=== PATIENT | female | born 1960 | race Caucasian/White ===

== ENCOUNTER 2019-04-03 10:53 | Emergency (ER) | payer MEDICARE, MEDICAID ==
[2019-04-03] MEDS ORDERED: ACETAMINOPHEN 325 MG TABLET PO ONE (11:06)
--- NOTE | 2019-04-03 11:06 | ER Document Report ---
HPI - HPI Time Seen by Provider: 04/03/19 11:04 Notes: Patient is a 58-year-old female with a history of hypertension, anxiety, MS, hyperlipidemia who presents complaining of left elbow swelling and pain status post fall Thursday night. Patient states that she tripped and landed on her elbow on the pavement. Patient states that she scraped her left knee, but did not injure any other part of her body. She did not hit her head. Patient states that her knee feels fine otherwise and has been ambulating without any difficulty. Denies drug allergies. She is on aspirin but no other blood thinner. Denies any headache, fever, head injury, neck pain, changes in vision/speech/mentation/hearing, URI, sore throat, chest pain, palpitations, syncope, cough, shortness of breath, wheeze, dyspnea, abdominal pain, nausea/vomiting/diarrhea, urinary retention, dysuria, hematuria, loss of control of bowel or bladder, numbness/tingling, saddle anesthesia, muscle paralysis, or rash. - ROS Systems Reviewed and Negative: Yes All other systems reviewed and negative Past Medical History - Social History Smoking Status: Current Every Day Smoker Family History: Reviewed & Not Pertinent Vertical Provider Document - CONSTITUTIONAL Agree With Documented VS: Yes Notes: PHYSICAL EXAMINATION: GENERAL: Well-appearing, well-nourished and in no acute distress. HEAD: Atraumatic, normocephalic. NECK: Normal range of motion, supple without lymphadenopathy. No midline tenderness. LUNGS: Breath sounds clear to auscultation bilaterally and equal. No wheezes rales or rhonchi. HEART: Regular rate and rhythm without murmurs, rubs, gallops. Musculoskeletal: Left elbow: + swelling and tenderness to the elbow area and proximal forearm. LROM to passive/active. Strength 4+/5 due to pain. N/V intact distal. FROM at the shoulder/wrist/fingers. No other bony tenderness apprecia julianna. Lt knee: small abrasion. No deformity, tenderness, swelling, erythema, warmth, or ecchymosis. N/V intact distal. Extremities: No cyanosis, clubbing, or edema b/l. Peripheral pulses 2+. Cap illary refill less than 3 seconds. NEUROLOGICAL: Normal speech, normal gait. Normal sensory, motor exams otherwise PSYCH: somewhat anxious SKIN: Warm, Dry, normal turgor, no rashes or lesions noted. Course - Vital Signs Vital signs: Temp Pulse Resp BP Pulse Ox 98.3 F 100 18 144/96 H 98 04/03/19 10:58 04/03/19 10:58 04/03/19 10:58 04/03/19 10:58 04/03/19 10:58
[2019-04-03] MEDS ORDERED: NORMAL SALINE 1000 ML 1,000 ML IV ONE (11:15)
[2019-04-03] MEDS ORDERED: MORPHINE SULFATE 10 MG/ML INJ IV ONE (11:15)
--- NOTE | 2019-04-03 11:15 | ER Document Report ---
ED Medical Screen (RME) - General Chief Complaint: Arm Injury Stated Complaint: ARM INJURY Time Seen by Provider: 04/03/19 11:04 - HPI Notes: 04/03/19 11:14 Patient is a 58-year-old female with a history of hypertension, anxiety, MS, hyperlipidemia who presents complaining of left elbow swelling and pain status post fall Dwain night. Patient states that she tripped and landed on her elbow on the pavement. Patient states that she scraped her left knee, but did not injure any other part of her body. She did not hit her head. Patient states that her knee feels fine otherwise and has been ambulating without any difficulty. Denies drug allergies. She is on aspirin but no other blood thinner. Denies any headache, fever, head injury, neck pain, changes in vision/speech/mentation/hearing, URI, sore throat, chest pain, palpitations, syncope, cough, shortness of breath, wheeze, dyspnea, abdominal pain, nausea/vomiting/diarrhea, urinary retention, dysuria, hematuria, loss of control of bowel or bladder, numbness/tingling, saddle anesthesia, muscle paralysis, or rash. I have treated and performed a rapid initial assessment of this patient. A comprehensive ED assessment and evaluation of the patient, analysis of test results and completion of medical decision making process will be conducted by additional ED providers. PHYSICAL EXAMINATION: Musculoskeletal: Left elbow: + significant swelling/deformity noted and tenderness to the elbow area and proximal forearm. LROM to passive/active. FROM at the shoulder/wrist/fingers. No other bony tenderness appreciated. Lt knee: small abrasion. No deformity, tenderness, swelling, erythema, warmth, or ecchymosis. N/V intact distal. PSYCH: somewhat anxious Physical Exam - Vital signs Vitals: Temp Pulse Resp BP Pulse Ox 98.3 F 100 18 144/96 H 98 04/03/19 10:58 04/03/19 10:58 04/03/19 10:58 04/03/19 10:58 04/03/19 10:58 Course - Vital Signs Vital signs: Temp Pulse Resp BP Pulse Ox 98.3 F 100 18 144/96 H 98 04/03/19 10:58 04/03/19 10:58 04/03/19 10:58 04/03/19 10:58 04/03/19 10:58
[2019-04-03 11:34] LABS: ABSOLUTE BASOPHILS # (AUTO) 0.1 10^3/uL (0.0-0.2); ABSOLUTE EOSINOPHILS # (AUTO) 0.1 10^3/uL (0.0-0.6); ABSOLUTE LYMPHOCYTES (AUTO) 2.6 10^3/uL (0.5-4.7); ABSOLUTE MONOCYTES (AUTO) 1.1 10^3/uL (0.1-1.4); ABSOLUTE NEUT (AUTO) 5.4 10^3/uL (1.7-8.2); BASOPHILS % (AUTO) 1.2 % (0-2); EOSINOPHILS % (AUTO) 0.8 % (0-6); HEMATOCRIT 41.8 % (36.0-47.0); HEMOGLOBIN 14.5 g/dL (12.0-15.5); LYMPHOCYTES % (AUTO) 28.1 % (13-45); MEAN CORPUSCULAR HEMOGLOBIN 32.5 pg (27.0-33.4); MEAN CORPUSCULAR HGB CONC 34.6 g/dL (32.0-36.0); MEAN CORPUSCULAR VOLUME 94 fl (80-97); MONOCYTES % (AUTO) 12.1 % (3-13); PLATELET COUNT 327 10^3/uL (150-450); RED BLOOD COUNT 4.45 10^6/uL (3.72-5.28); SEGMENTED NEUTROPHILS % (AUTO) 57.8 % (42-78); TOTAL CELLS COUNTED % (AUTO) 100 %; WHITE BLOOD COUNT 9.3 10^3/uL (4.0-10.5)
[2019-04-03 11:36] LABS: INTERNATIONAL RATION (INR) 0.96; PROTHROMBIN TIME 12.8 SEC (11.4-15.4)
[2019-04-03 11:37] LABS: PARTIAL THROMBOPLASTIN TIME 28.6 SEC (23.5-35.8)
[2019-04-03 11:51] LABS: ALBUMIN 4.4 g/dL (3.5-5.0); ALKALINE PHOSPHATASE 101 U/L (38-126); ANION GAP 13 (5-19); ASPARTATE AMINO TRANSFERASE 30 U/L (14-36); BILIRUBIN,DIRECT 0.1 mg/dL (0.0-0.4); BILIRUBIN,TOTAL 0.9 mg/dL (0.2-1.3); BLOOD UREA NITROGEN 9 mg/dL (7-20); CALCIUM 10.1 mg/dL (8.4-10.2); CARBON DIOXIDE 20 mmol/L (22-30); CHLORIDE 103 mmol/L (98-107); GLUCOSE 138 mg/dL (75-110); POTASSIUM 4.4 mmol/L (3.6-5.0); TOTAL PROTEIN 7.8 g/dL (6.3-8.2)
--- NOTE | 2019-04-03 11:52 | RADIOLOGY REPORT (SQ) ---
EXAM DESCRIPTION: ELBOW LEFT OVER 2 VIEWS COMPLETED DATE/TIME: 04/03/2019 11:24 am REASON FOR STUDY: elbow pain COMPARISON: None. NUMBER OF VIEWS: Two views. TECHNIQUE: AP and lateral radiographic images acquired of the left elbow. LIMITATIONS: None. FINDINGS: Lateral dislocation of the elbow. Subcentimeter bone fragments overlying the posterior tracy int capsule. IMPRESSION: Lateral dislocation. TECHNICAL DOCUMENTATION: JOB ID: [id number] [employer]- All Rights Reserved Reading location - IP/workstation name: [email or web address]
[2019-04-03] MEDS ORDERED: PROPOFOL INJ 200 MG/20 ML VIAL IV ONE ×3 (12:08→13:50)
[2019-04-03] MEDS ORDERED: FENTANYL CITRATE INJ/PF 100 MCG/2 ML AMPUL IV ONE (12:09)
[2019-04-03] MEDS ORDERED: NORMAL SALINE 500 ML IV ONE (13:17)
--- NOTE | 2019-04-03 14:53 | RADIOLOGY REPORT (SQ) ---
EXAM DESCRIPTION: ELBOW LEFT AP/LATERAL COMPLETED DATE/TIME: 04/03/2019 2:34 pm REASON FOR STUDY: Reduction COMPARISON: Earlier the same day. NUMBER OF VIEWS: Two views. TECHNIQUE: AP and lateral radiographic images acquired of the left elbow. LIMITATIONS: External cast. FINDINGS: Reduction of previously described elbow dislocation. IMPRESSION: Successful closed reduction. TECHNICAL DOCUMENTATION: JOB ID: [id number] [employer]- All Rights Reserved Reading location - IP/workstation name: [email or web address]
--- NOTE | 2019-04-03 15:12 | ER Document Report ---
ED General - General Chief Complaint: Arm Injury Stated Complaint: ARM INJURY Time Seen by Provider: 04/03/19 11:04 Primary Care Provider: JD MCGOVERN PA-C [Primary Care Provider] - Follow up as needed ISABELLE HANNA JR, DO [ACTIVE PROVISIONAL STAFF] - Follow up tomorrow Mode of Arrival: Ambulatory Information source: Patient, Relative Notes: Patient is a 58-year-old female with a history of hypertension, anxiety, MS, hyperlipidemia who presents complaining of left elbow swelling and pain status post fall Thursday night. Patient states that she tripped and landed on her elbow on the pavement. Patient states that she scraped her left knee, but did not in jure any other part of her body. She did not hit her head. Patient states that her knee feels fine otherwise and has been ambulating without any difficulty. Denies drug allergies. She is on aspirin but no other blood thinner. Denies any headache, fever, head injury, neck pain, changes in vision /speech/mentation/hearing, URI, sore throat, chest pain, palpitations, syncope, cough, shortness of breath, wheeze, dyspnea, abdominal pain, nausea/vomiting/diarrhea, urinary retention, dysuria, hematuria, loss of control of bowel or bladder, numbness/tingling, saddle anesthesia, muscle paralysis, or rash. TRAVEL OUTSIDE OF THE [place] IN LAST 30 DAYS: No - HPI Onset: Other Onset/Duration: Gradual, Persistent Quality of pain: Achy, Throbbing Severity: Moderate Pain Level: 3 Associated symptoms: denies: Chest pain, Diarrhea, Fever, Leg swelling, Nausea, Vomiting, Shortness of breath, Sweating, Weakness Exacerbated by: Movement Relieved by: Remaining still Similar symptoms previously: No Recently seen / treated by doctor: No - Related Data Allergies/Adverse Reactions: No Known Allergies Allergy (Verified 04/03/19 11:16) Past Medical History - General Information source: Patient, Relative, Emergency Med Personnel - Social History Smoking Status: Current Every Day Smoker Cigarette use (# per day): Yes - 10 Chew tobacco use (# tins/day): No Smoking Education Provided: Yes - Smoking cessation counseling was provided for 4 minutes at the bedside Frequency of alcohol use: Social Drug Abuse: None Lives with: Family Family History: Reviewed & Not Pertinent Patient has suicidal ideation: No Patient has homicidal ideation: No - Past Medical History Cardiac Medical History: Reports: Hx Hypercholesterolemia, Hx Hypertension Review of Systems - Review of Systems Notes: REVIEW OF SYSTEMS: CONSTITUTIONAL : Denies fever, chills, or sweats. Denies recent illness. Denies weight loss, recent hospitalizations. EENT: Denies visual changes, eye pain. Denies sore throat, oral lesions, difficulty swallowing. CARDIOVASCULAR: Denies chest pain. Denies palpitations. Denies lower extremity edema. RESPIRATORY: Denies cough. Denies shortness of breath, wheezing. GASTROINTESTINAL: Denies abdominal pain or distention. Denies nausea, vomiting, or diarrhea. Denies blood in vomitus, stools, or per rectum. Denies black, tarry stools. Denies constipation. GENITOURINARY: Denies difficulty urinating, painful urination, frequency, blood in urine, or vaginal discharge. MUSCULOSKELETAL: Denies back or neck pain or stiffness. + joint pain or swelling. SKIN: Denies rash, lesions or sores. HEMATOLOGIC : Denies easy bruising or bleeding. LYMPHATIC: Denies swollen glands. NEUROLOGICAL: Denies confusion or altered mental status. Denies loss of consciousness. Denies dizziness or lightheadedness. Denies headache. Denies weakness or paralysis. Denies problems difficulty with ambulation, slurred speech. Denies sensory loss, numbness, or tingling. Denies seizures. PSYCHIATRIC: Denies anxiety or stress. Denies depression, suicidal ideation, or homicidal ideation. Denies visual or auditory hallucinations. Physical Exam - Vital signs Vitals: Temp Pulse Resp BP Pulse Ox 98.3 F 100 18 144/96 H 98 04/03/19 10:58 04/03/19 10:58 04/03/19 10:58 04/03/19 10:58 04/03/19 10:58 - Notes Notes: PHYSICAL EXAMINATION: GENERAL: Well-appearing, well-nourished and in no acute distress. HEAD: Atraumatic, normocephalic. EYES: Pupils equal round and reactive to light, extraocular movements intact, conjunctiva are normal. ENT: Nares patent, oropharynx clear without exudates. Moist mucous membranes. NECK: Normal range of motion, supple without lymphadenopathy LUNGS: Breath sounds clear to auscultation bilaterally and equal. No wheezes rales or rhonchi. HEART: Regular rate and rhythm without murmurs ABDOMEN: Soft, nontender, nondistended abdomen. No guarding, no rebound. No masses appreciated. Female : deferred Musculoskeletal: Normal range of motion of bilateral lower extremity, right upper extremity, no pitting or edema. No cyanosis. Left elbow with obvious deformity, ecchymosis, swelling. Limited range of motion. Radial pulse intact. Cap refill less than 3 seconds. sensation intact. NEUROLOGICAL: Cranial nerves grossly intact. Normal speech, normal gait. Normal sensory, motor exams PSYCH: Normal mood, normal affect. SKIN: Warm, Dry, normal turgor, no rashes or lesions noted. Course - Re-evaluation Re-evalutation: 04/03/19 18:25 Laboratory 04/03/19 04/03/19 04/03/19 11:20 11:20 11:20 WBC 9.3 RBC 4.45 Hgb 14.5 Hct 41.8 MCV 94 MCH 32.5 MCHC 34.6 RDW 14.0 Plt Count 327 Lymph % (Auto) 28.1 Forest % (Auto) 12.1 Eos % (Auto) 0.8 Baso % (Auto) 1.2 Absolute Neuts (auto) 5.4 Absolute Lymphs (auto) 2.6 Absolute Monos (auto) 1.1 Absolute Eos (auto) 0.1 Absolute Basos (auto) 0.1 Seg Neutrophils % 57.8 PT 12.8 INR 0.96 APTT 28.6 Sodium 136.0 L Potassium 4.4 Chloride 103 Carbon Dioxide 20 L Anion Gap 13 BUN 9 Creatinine 0.85 Est GFR ( Amer) > 60 Est GFR (MDRD) Non-Af > 60 Glucose 138 H Calcium 10.1 Total Bilirubin 0.9 Direct Bilirubin 0.1 Neonat Total Bilirubin Not Reportable Neonat Direct Bilirubin Not Reportable Neonat Indirect Bili Not Reportable AST 30 ALT 16 Alkaline Phosphatase 101 Total Protein 7.8 Albumin 4.4 Elbow X-Ray 04/03/19 13:39 IMPRESSION: Successful closed reduction. Upper Extremity CT 04/03/19 15:06 IMPRESSION: Fractures of the lateral humeral condyle and radial head. Temp Pulse Resp BP Pulse Ox 99.0 F 81 20 158/76 H 97 04/03/19 15:01 04/03/19 13:02 04/03/19 15:31 04/03/19 15:31 04/03/19 15:31 58-year-old female presents after a trip and fall that occurred 3 days ago with complaint of left elbow pain. Patient denies any preceding chest pain, dizziness contributing to her fall. Patient has been icing and taking anti- inflammatory medications without relief. X-ray of the elbow was obtained and showed a lateral dislocation with radial head fracture. Patient was successfully reduced in the emergency department using fentanyl and propofol. Postreduction neuro and vascular exam within normal limits. Patient was placed in a long-arm posterior splint and repeat films show successful close reduction. I did speak to Dr. Hanna orthopedic surgeon on-call who is requesting a CT of the upper extremity. He has agreed to see the patient in the office tomorrow. Patient is agreeable with this plan. Patient was evaluated and treated as appropriate for the patient's presenting symptoms and complaint, with consideration of any critical or life threatening conditions that may be associated with their obtained history and exam as noted above. All results were discussed with patient and... Patient provided the opportunity to ask questions, and express concerns. Patient was educated on treatments based on their presumed diagnosis as noted above. At this time we will discharge the patient with return precautions and follow-up recommendations. Verbal discharge instructions given a the bedside. Medication warnings reviewed. Patient is in agreement with this plan and has verbalized understanding of return precautions. After careful consideration I feel that that patient can be safely discharged from the emergency department, they were advised to followup with a primary car e physician in 2-3 days. Dictation on this chart was performed using voice recognition software and may result in unintended grammatical, spelling, syntax or errors. - Vital Signs Vital signs: Temp Pulse Resp BP Pulse Ox 99.0 F 81 20 158/76 H 97 04/03/19 15:01 04/03/19 13:02 04/03/19 15:31 04/03/19 15:31 04/03/19 15:31 - Laboratory Result Diagrams: 04/03/19 11:20 04/03/19 11:20 Laboratory results interpreted by me: 04/03/19 11:20 Sodium 136.0 L Carbon Dioxide 20 L Glucose 138 H - Diagnostic Test Radiology reviewed: Image reviewed, Reports reviewed Procedures - Conscious Sedation Conscious sedation Time started: 13:00 Time completed: 13:35 Consent obtained: Yes Indication: Left elbow dislocation Last meal: 4 hours prior to arrival Prior complications: Procedural sedation Pt with a mild systemic disease.: P2. - ASA Classification. Airway Evaluation: Normal anatomy Mallampati Classification: Class 2 Used during procedure: Suction available, IV access obtained, Pulse ox on pt., monitor worker on pt. Medications administered: Fentanyl, Diprivan Reversal agents: None I personally performed/intraservice time: Sedation, Procedure, 31-45 min Complications: No - Joint Reduction/Fracture Care Left Elbow Time completed: 13:00 Consent obtained: Yes Conscious sedation: Yes Pre-procedure NV exam: Yes Fracture: Closed Post-procedure NV exam: Yes Post-reduction x-ray: Joint reduced Reduction attempts: 2 Complications: No Discharge - Discharge Clinical Impression: Elbow dislocation Qualifiers: Encounter type: initial encounter Laterality: left Qualified Code(s): S53.105A - Unspecified dislocation of left ulnohumeral joint, initial encounter Radial head fracture, closed Qualifiers: Encounter type: initial encounter Fracture alignment: displaced Laterality: left Qualified Code(s): S52.122A - Displaced fracture of head of left radius, initial encounter for closed fracture Fall Qualifiers: Encounter type: initial encounter Qualified Code(s): W19.XXXA - Unspecified fall, initial encounter Condition: Good Disposition: HOME, SELF-CARE Instructions: Dislocation ([facility]), Radial Head Fracture ([facility]) Additional Instructions: If you experience increasing pain you may loosen your splint but do not remove it completely. If loosening the splint does not help with your pain please return to the emergency department. Your x-ray showed a dislocation and fracture of your left elbow which will need to be seen by orthopedic surgery. Please call Dr. Hanna tomorrow morning Thursday, April 04, 2019 to schedule an appointment. Prescriptions: Oxycodone HCl/Acetaminophen [Percocet 5-325 mg Tablet] 1 tab PO Q6H PRN #15 tablet PRN Reason: Ondansetron [Zofran Odt 4 mg Tablet] 1 - 2 tab PO Q4H PRN #15 tab.rapdis PRN Reason: For Nausea/Vomiting Forms: Elevated Blood Pressure Referrals: JD MCGOVERN PA-C [Primary Care Provider] - Follow up as needed ISABELLE HANNA JR, DO [ACTIVE PROVISIONAL STAFF] - Follow up tomorrow
[2019-04-03 15:44] VITALS: BP 158/76
--- NOTE | 2019-04-03 16:07 | RADIOLOGY REPORT (SQ) ---
EXAM DESCRIPTION: CT LT UPPER EXTREMITY WITHOUT COMPLETED DATE/TIME: 04/03/2019 3:47 pm REASON FOR STUDY: fracture dislocation left elbow COMPARISON: None. TECHNIQUE: Axial imaging performed through the Left elbow with reformatted coronal and sagittal imaging windowed for bone and soft tissues. Images saved to PAC S. 3D IMAGING: Were 3D images as MIP, SSD, or volume rendering performed at the work station? Yes LIMITATIONS: External cast. FINDINGS: SOFT TISSUES: External cast. BONY STRUCTURES: Dislocation has been reduced. Nondisplaced fracture of the anterior margin of the r adial head. Comminuted nondisplaced fracture of the lateral humeral condyle. MINERALIZATION: Normal. OTHER: No other significant finding. IMPRESSION: Fractures of the lateral humeral condyle and radial head. Reading location - IP/workstation name: [email or web address]
== END 2019-04-03 15:44 | disposition home or self-care (01) ==
LOC: ER 10:53
DX: S42.452A Displaced fracture of lateral condyle of left humerus, initial encounter for closed fracture (principal); S52.122A Displaced fracture of head of left radius, initial encounter for closed fracture; W19.XXXA Unspecified fall, initial encounter; I10 Essential (primary) hypertension; F17.210 Nicotine dependence, cigarettes, uncomplicated; Z71.6 Tobacco abuse counseling
CPT/HCPCS: 24999; 99406; 99284; 96361; 99152; 96374; 36415; 85025; 85610; 85730; 80053; 73070; 73080; 73200; J3010; J2270; J7030; J7040; J2704

== ENCOUNTER 2019-07-20 15:52 | Emergency (ER) | payer MEDICAID, MEDICARE ==
[2019-07-20 15:57] VITALS: BP 146/75
[2019-07-20] MEDS ORDERED: OXYCODONE-ACETAMINOPHEN 5-325 MG TABLET PO ONE (16:23)
--- NOTE | 2019-07-20 16:28 | ER Document Report ---
ED Fall - General TRAVEL OUTSIDE OF THE [place] IN LAST 30 DAYS: No - HPI Occurred: Yesterday Where: Home, Indoors Context: Tripped Associated symptoms: None Location of injury/pain: Upper extremity Quality of pain: Sharp Severity: Severe Pain Level: 5 - General Chief Complaint: Fall Injury Stated Complaint: FALL/RIGHT ARM PAIN Time Seen by Provider: 07/20/19 16:22 Primary Care Provider: [facility] [Provider Group] - Follow up tomorrow JD MCGOVERN PA-C [Primary Care Provider] - Follow up as needed ROSA M ARAIZA MD [ACTIVE PROVISIONAL STAFF] - Follow up tomorrow ISABELLE ELLIOTT JR, DO [ACTIVE PROVISIONAL STAFF] - Follow up tomorrow Notes: 58-year-old female presented to ED after she fell last night. She states she was up on the ladder and leaned on the table trying to clean a light fixture when the ladder and table went out from under her and she landed on the floor. She does have a large bruise with swelling and pain to the upper right arm. She states she did fracture her left elbow last year. She is alert oriented respirations regular nonlabored. She states she has no other pain or injuries. (LILIYA DIANA) - Related data Allergies/Adverse Reactions: No Known Allergies Allergy (Verified 07/20/19 16:16) Past Medical History - General Information source: Patient - Social History Smoking Status: Current Every Day Smoker Cigarette use (# per day): Yes - Pack per day Smoking Education Provided: Yes - 4 minutes Frequency of alcohol use: Social Drug Abuse: Marijuana - Occasionally Occupation: Disabled Lives with: Alone Family History: Reviewed & Not Pertinent Patient has suicidal ideation: No Patient has homicidal ideation: No - Past Medical History Cardiac Medical History: Reports: Hx Hypercholesterolemia, Hx Hypertension Pulmonary Medical History: Reports: None EENT Medical History: Reports: None Neurological Medical History: Reports: Hx Migraine, Other - Tremors Endocrine Medical History: Reports: None Renal/ Medical History: Reports: None Malignancy Medical History: Reports: None GI Medical History: Reports: Hx Colonoscopy Musculoskeletal Medical History: Reports Hx Arthritis, Reports Hx Multiple Sclerosis, Reports Hx Musculoskeletal Deformity, Reports Hx Musculoskeletal Trauma Skin Medical History: Reports None Psychiatric Medical History: Reports: Hx Anxiety, Hx Depression Traumatic Medical History: Reports: Hx Fractures - Left elbow Infectious Medical History: Reports: None Past Surgical History: Reports: Hx Myringotomy, Hx Oral Surgery - Lower gland removed, jaw tumors removed, Hx Tubal Ligation, Other - Fifth and sixth cervical vertebrae Review of Systems - Review of Systems Constitutional: No symptoms reported EENT: No symptoms reported Cardiovascular: No symptoms reported Respiratory: No symptoms reported Gastrointestinal: No symptoms reported Genitourinary: No symptoms reported Female Genitourinary: No symptoms reported Musculoskeletal: No symptoms reported Skin: No symptoms reported Hematologic/Lymphatic: No symptoms reported Neurological/Psychological: No symptoms reported -: Yes All other systems reviewed and negative Physical Exam - Vital signs Interpretation: Normal - General General appearance: Appears well, Alert - HEENT Head: Normocephalic, Atraumatic Eyes: Normal Pupils: PERRL - Respiratory Respiratory status: No respiratory distress Chest status: Nontender Breath sounds: Normal Chest palpation: Normal - Cardiovascular Rhythm: Regular Heart sounds: Normal auscultation Murmur: No - Abdominal Inspection: Normal Distension: No distension Bowel sounds: Normal Tenderness: Nontender Organomegaly: No organomegaly - Back Back: Normal, Nontender - Extremities General upper extremity: Normal temperature General lower extremity: Normal inspection, Nontender, Normal color, Normal ROM, Normal temperature, Normal weight bearing. No: Tanisha's sign Arm: Tender, Ecchymosis, Other - Swelling - Neurological Neuro grossly intact: Yes Cognition: Normal Orientation: AAOx4 Nurys Coma Scale Eye Opening: Spontaneous [place] Coma Scale Verbal: Oriented [place] Coma Scale Motor: Obeys Commands [place] Coma Scale Total: 15 Speech: Normal Motor strength normal: LUE, RUE, LLE, RLE Sensory: Normal - Psychological Associated symptoms: Normal affect, Normal mood - Skin Skin Temperature: Warm Skin Moisture: Dry Skin Color: Normal, Ecchymosis - Right upper arm Location of irregularity: Extremities Irregularity with: Swelling, Tenderness - Right upper arm - Vital signs Vitals: Temp Pulse Resp BP Pulse Ox 98.3 F 84 16 146/75 H 98 07/20/19 15:56 07/20/19 15:56 07/20/19 15:56 07/20/19 15:56 07/20/19 15:56 Course - Diagnostic Test Radiology reviewed: Image reviewed, Reports reviewed - Re-evaluation Re-evalutation: 07/20/19 17:26 I have discussed the x-ray results with the patient and written report of the x- rays given to patient. Patient has been given instructions to follow-up with orthopedics. She has been given the number for Dr. Elliott, Dr. Araiza, and [facility] surgery. Patient verbalized she will call someone tomorrow to be followed up for her fracture to the right proximal humerus surgical neck site. 07/20/19 17:28 To Teodora was consulted and he will examined the patient for follow-up. I have given the patient Dr. Teodora Elliott and [facility] surgery for follow-up. (LILIYA DIANA) - Vital Signs Vital signs: Temp Pulse Resp BP Pulse Ox 98.3 F 84 16 146/75 H 98 07/20/19 15:56 07/20/19 15:56 07/20/19 15:56 07/20/19 15:56 07/20/19 15:56 Procedures - Immobilization Right Shoulder Time completed: 17:15 Pre-Proc Neuro Vasc Exam: Normal Immobilizer type: Sling Performed by: PCT Post-Proc Neuro Vasc Exam: Normal Alignment checked and good: Yes Discharge - Discharge Clinical Impression: Displaced fracture of proximal end of right humerus Condition: Stable Disposition: HOME, SELF-CARE Additional Instructions: Fracture Proximal Humerus There is a fracture at the upper end of the humerus, near the shoulder joint. Your physician has assessed the fracture's severity and has determined that it will heal well without surgery or "setting." The typical shoulder fracture doesn't need a cast. It's best treated by binding the arm down with a special sling. Ice packs are used to reduce pain and swelling. After early healing has occurred, [id number] exercises are prescribed for the shoulder. Complete healing may take three to six weeks, depending on the age of the patient and the severity of the fracture. Call the doctor or return at once if the arm becomes numb, or if pain or swelling become severe. Ice Packs Apply ice packs frequently against the painful area. Many different schedules are recommended, such as "20 minutes on, 20 minutes off" or "one hour ice, two hours rest." If you need to work, you may need to go longer between ice treatments. You should plan to have the area ice packed AT LEAST one fourth of the time. The ice should be applied over the wrap, tape, or splint, or over a layer of cloth -- not directly against the skin. Some ice bags have a built-in cloth and can be put directly on the skin. USE OF [id number] IBUPROFEN: Ibuprofen (Advil, Nuprin, Medipren, Motrin IB) is a medication for fever and pain control. In addition, it has anti- inflammatory effects which may be beneficial, especially in the treatment of injuries. It's best to take ibuprofen with food. Persons with ulcer disease or allergy to aspirin should notify their physician of this before taking ibuprofen. Ibuprofen can be given every four to six hours, for a total of four doses daily. Age Pain or fever dose Antiinflammatory dose 6-8 yr 200 mg (1 tab) 200 mg (1 tab) 9-11 yr 200 mg (1 tab) 200-400 mg (1-2 tab) 11-14 yr 200-400 mg (1-2 tab) 400 mg (2 tab) 15-adult 400 mg (2 tab) 600 mg (3 tab) ORAL NARCOTIC MEDICATION: You have been given a prescription for pain control. This medication is a narcotic. It's best taken with food, as nausea can result if taken on an empty stomach. Don't operate machinery or drive within six hours of taking this medication. Do not combine this medicine with alcohol, or with any medication which can cause sedation (such as cold tablets or sleeping pills) unless you get permission from the physician. Narcotics tend to cause constipation. If possible, drink plenty of fluids and eat a diet high in fiber and fruits. Please be aware that prescription narcotics also have the potential for abuse. People become addicted to these medications because of the general sense of wellbeing that they induce. This feeling along with a significant reduction in tension, anxiety, and aggression provides a stimulating seductive quality to these drugs. Once your pain is under control, we encourage you to discard your unused narcotics. FOLLOW-UP CARE: If you have been referred to a physician for follow-up care, call the physicians office for an appointment as you were instructed or within the next two days. If you experience worsening or a significant change in your symptoms, notify the physician immediately or return to the Emergency Department at any time for re-evaluation. Prescriptions: Oxycodone HCl/Acetaminophen [Percocet 5-325 mg Tablet] 1 tab PO Q6HP PRN #15 tablet PRN Reason: Oxycodone HCl/Acetaminophen [Percocet 5-325 mg Tablet] 1 tab PO Q6H PRN #15 tablet PRN Reason: Forms: Elevated Blood Pressure, Smoking Cessation Education Referrals: JD MCGOVERN PA-C [Primary Care Provider] - Follow up as needed [facility] [Provider Group] - Follow up tomorrow ISABELLE ELLIOTT JR, DO [ACTIVE PROVISIONAL STAFF] - Follow up tomorrow ROSA M ARAIZA MD [ACTIVE PROVISIONAL STAFF] - Follow up tomorrow
--- NOTE | 2019-07-20 16:51 | RADIOLOGY REPORT (SQ) ---
EXAM DESCRIPTION: HUMERUS RIGHT COMPLETED DATE/TIME: 07/20/2019 4:40 pm REASON FOR STUDY: pain swelling and bruizing COMPARISON: None. NUMBER OF VIEWS: Two views. TECHNIQUE: Two radiographic images were acquired of the right humerus to include elbow and shoulder in at least one projection. LIMITATIONS: None. FINDINGS: MINERALIZATION: Decreased. BONES: Minimally displaced right proximal humerus surgical neck fracture. No significant angulation. SOFT TISSUES: No obvious swelling or foreign body. OTHER: No other significant finding. IMPRESSION: Minimally displaced right proximal humerus surgical neck fracture. No significant angul ation. TECHNICAL DOCUMENTATION: JOB ID: [id number] [employer] All Rights Reserved Reading location - IP/workstation name: [email or web address]
== END 2019-07-20 17:29 | disposition home or self-care (01) ==
LOC: ER 15:52
DX: S42.211A Unspecified displaced fracture of surgical neck of right humerus, initial encounter for closed fracture (principal); S40.021A Contusion of right upper arm, initial encounter; M79.601 Pain in right arm; M79.89 Other specified soft tissue disorders; W11.XXXA Fall on and from ladder, initial encounter; F17.210 Nicotine dependence, cigarettes, uncomplicated; I10 Essential (primary) hypertension
CPT/HCPCS: 99406; 99283; 73060; A9270